=== PATIENT | male | born 1930 | race American Indian/Alaskan Native ===

== ENCOUNTER 2020-05-30 10:39 | Emergency (ER) | payer MEDICARE ==
--- NOTE | 2020-05-30 11:17 | Emergency Department Report ---
HPI - General Chief Complaint: Fall Time Seen by Provider: 05/30/20 11:09 - [facility] HPI: Room 26 The patient is an 89-year-old male present with a chief complaint of fall from standing. Patient is a resident at a skilled nursing report was sent for evaluation after falling from standing. There is no loss of consciousness. Patient denies pain of any type or nausea. 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 ED Past Medical Hx - Past Medical History Previous Medical History?: Yes Hx Hypertension: Yes Hx CVA: Yes (Right-sided deficit) Hx Heart Attack/AMI: Yes Additional medical history: eye probs - Surgical History Past Surgical History?: Yes Additional Surgical History: right kidney removed - Family History Family history: no significant - Social History Smoking Status: Never Smoker Substance Use Type: None - Medications Home Medications: Home Medications Medication Instructions Recorded Confirmed Last Taken Type cephALEXin [Keflex] 500 mg PO Q12HR #10 cap 01/29/16 Unknown Rx ED Review of Systems ROS: Stated complaint: FALL Other details as noted in HPI Constitutional: no symptoms reported Eyes: denies: eye pain ENT: denies: throat pain Respiratory: no symptoms reported Cardiovascular: denies: chest pain Endocrine: no symptoms reported Gastrointestinal: denies: abdominal pain Musculoskeletal: denies: back pain, arthralgia Neurological: denies: headache Physical Exam - Physical Exam Vital Signs: Vital Signs 05/30/20 10:59 Temperature 97.8 F Pulse Rate 70 Respiratory 18 Rate Blood Pressure 119/64 Blood Pressure 119/64 [Right] O2 Sat by Pulse 98 Oximetry Physical Exam: GENERAL: The patient is well-developed well-nourished male lying on stretcher not appearing to be in acute distress. [] HEENT: Normocephalic. Atraumatic. Extraocular motions are intact. Patient has moist mucous membranes. NECK: Supple. No axial step-off CHEST/LUNGS: Clear to auscultation. There is no respiratory distress noted. HEART/CARDIOVASCULAR: Regular. There is no tachycardia. There is no gallop rub or murmur. ABDOMEN: Abdomen is soft, nontender. Patient has normal bowel sounds. There is no abdominal distention. SKIN: There is no rash. There is no edema. There is no diaphoresis. NEURO: The patient is awake, alert, and oriented. The patient is cooperative. Cranial nerves II through XII grossly intact with exception of cranial nerve XI on the right. The patient has right-sided weakness from previous CVA. The patient has normal speech MUSCULOSKELETAL: There is no evidence of acute injury. ED Course Vital Signs 05/30/20 10:59 Temperature 97.8 F Pulse Rate 70 Respiratory 18 Rate Blood Pressure 119/64 Blood Pressure 119/64 [Right] O2 Sat by Pulse 98 Oximetry ED Medical Decision Making - Radiology Data Radiology results: report reviewed (CT head, CT cervical spine), image reviewed (CT head, CT cervical spine) CT head (read by radiologist)-no acute intracranial abnormality [facility] [address] [place] [address] Cat Scan Report Signed Patient: MELE ESPINAL MR#: [id number] : 1930 Acct:[id number] Age/Sex: 89 / M ADM Date: 05/30/20 Loc: ED Attending Dr: Ordering Physician: ANGEL ENGEL MD Date of Service: 05/30/20 Procedure(s): CT cervical spine wo con Accession Number(s): [id number] cc: ANGEL ENGEL MD CT CERVICAL SPINE WITHOUT CONTRAST INDICATION / CLINICAL INFORMATION: Trauma. Patient fell sustaining neck injury. TECHNIQUE: Axial CT images were obtained through the cervical spine. Sagittal and coronal reformatted images were produced. All CT scans at this location are performed using CT dose reduction for ALARA by means of automated exposure control. COMPARISON: None available. FINDINGS: ALIGNMENT: Patient's head is tilted towards the left. There is a mild dextroscoliosis at the cervicothoracic junction. No additional abnormalities of alignment are identified. There is no indication of traumatic subluxation. VERT EBRAE: Is no indication of fracture or bone destruction. Incidental note is made of vertebral pneumatocele cysts at the inferior endplate of C5 and superior endplate of C6. DISC SPACES: Loss of disc height is noted throughout. In addition disc vacuum phenomena is identified at the C4-5 and C5-6 levels. DEGENERATIVE CHANGES: Widespread disc desiccation is noted. Anterior and posterior osteophyte formation is observed at multiple levels. Bilateral facet and uncovertebral arthropathy are noted. These degenerative changes contribute to these multifocal neuroforaminal stenosis including severe right-sided C3 nerve root foraminal stenosis, severe left-sided C4 nerve root neuroforaminal stenosis, severe right-sided C5 nerve root neuroforaminal stenosis, and moderate bilateral C7 nerve root neuroforaminal stenosis. There is no indication of significant central canal stenosis. CRANIOCERVICAL JUNCTION:No significant abnormality. SPINAL CANAL: No indication of significant central canal stenosis. PARASPINAL SOFT TISSUES: No significant abnormality. LUNG APICES: Biapical bullous changes are noted. The lung apices are largely excluded from this examination. IMPRESSION: 1. No indication of fracture or traumatic subluxation. 2. Multifocal neuroforaminal stenosis secondary to widespread cervical spondylosis. Signer Name: Leland Samayoa MD Signed: 05/30/2020 12:44 PM Workstation Name: [id number] Transcribed By: Dictated By: Leland Samayoa MD Electronically Authenticated By: Leland Samayoa MD Signed Date/Time: 05/30/201243 DD/ 39 TD/TT: - Differential Diagnosis Close head injury, cervical fracture, Critical care attestation.: If time is entered above; I have spent that time in minutes in the direct care of this critically ill patient, excluding procedure time. ED Disposition Clinical Impression: Fall with no injury Disposition: DC/TX-70 ANOTHER TYPE HLTHCARE Is pt being admited?: No Does the pt Need Aspirin: No Condition: Stable Additional Instructions: Return to the emergency department should you develop worsening symptoms, inability to tolerate food or liquids, high fever or any other concerns Referrals: PRIMARY [facility] [Referring] - 3-5 Days Time of Disposition: 13:03
--- NOTE | 2020-05-30 12:49 | Cat Scan Report ---
CT CERVICAL SPINE WITHOUT CONTRAST INDICATION / CLINICAL INFORMATION: Trauma. Patient fell sustaining neck injury. TECHNIQUE: Axial CT images were obtained through the cervical spine. Sagittal and coronal reformatted images wer e produced. All CT scans at this location are performed using CT dose reduction for ALARA by means of automated exposure control. COMPARISON: None available. FINDINGS: ALIGNMENT: Patient's head is tilted towards the left. There is a mild dextroscoliosis at the cervicot horacic junction. No additional abnormalities of alignment are identified. There is no indication of traumatic subluxation. VERTEBRAE: Is no indication of fracture or bone destruction. Incidental note is made of vertebral pne umatocele cysts at the inferior endplate of C5 and superior endplate of C6. DISC SPACES: Loss of disc height is noted throughout. In addition disc vacuum phenomena is identified at the C4-5 and C5-6 levels. DEGENERATIVE CHANGES: Widespread disc desiccation is noted. Anterior and posterior osteophyte formati on is observed at multiple levels. Bilateral facet and uncovertebral arthropathy are noted. These deg enerative changes contribute to these multifocal neuroforaminal stenosis including severe right-sided C3 nerve root foraminal stenosis, severe left-sided C4 nerve root neuroforaminal stenosis, severe ri ght-sided C5 nerve root neuroforaminal stenosis, and moderate bilateral C7 nerve root neuroforaminal stenosis. There is no indication of significant central canal stenosis. CRANIOCERVICAL JUNCTION:No significant abnormality. SPINAL CANAL: No indication of significant central canal stenosis. PARASPINAL SOFT TISSUES: No significant abnormality. LUNG APICES: Biapical bullous changes are noted. The lung apices are largely excluded from this exami nation. IMPRESSION: 1. No indication of fracture or traumatic subluxation. 2. Multifocal neuroforaminal stenosis secondary to widespread cervical spondylosis. Signer Name: Leland Samayoa MD Signed: 05/30/2020 12:44 PM Workstation Name: [id number]
--- NOTE | 2020-05-30 12:53 | Cat Scan Report ---
CT HEAD WITHOUT CONTRAST INDICATION / CLINICAL INFORMATION: Fall from standing. TECHNIQUE: All CT scans at this location are performed using CT dose reduction for ALARA by means of automated e xposure control. COMPARISON: Head CT 01/10/2013 FINDINGS: HEMORRHAGE: No evidence of intracranial hemorrhage or extra-axial fluid collection. EXTRA-AXIAL SPACES: Cortical sulci and sylvian fissures are enlarged reflecting a degree of parenchym al volume loss which is within normal limits for the patient's age of 89 years. Basilar cisterns have an unremarkable appearance. VENTRICULAR SYSTEM: The third and lateral ventricles are enlarged reflecting presence of age related parenchymal volume loss. CEREBRAL PARENCHYMA: Periventricular and deep white matter lucency is observed. This is probably seco ndary to microvascular ischemic change. There is no indication of recent infarction. Multiple remote infarctions have developed since previous study. There is a small deep infarction in the left thalamu s. A right frontal anterior cerebral artery infarction is observed. Focal decreased attenuation is se en in the left frontal operculum. There is no indication of recent infarction. MIDLINE SHIFT OR HERNIATION: There is no mass effect. CEREBELLUM / BRAINSTEM: Brainstem has an unremarkable appearance. Age related cerebellar atrophy is n oted. MIDLINE STRUCTURES:Pituitary gland has an unremarkable appearance. No abnormalities are seen in the p ineal region. INTRACRANIAL VESSELS:Calcified atherosclerotic plaque is present along the course of the cavernous se gments of both internal carotid arteries. ORBITS: Status post bilateral cataract surgery. The orbits have an otherwise unremarkable appearance. SOFT TISSUES of HEAD: No significant abnormality. CALVARIUM: Evaluation of bone windows reveals no abnormalities. PARANASAL SINUSES / MASTOID AIR CELLS: Paranasal sinuses are free from inflammatory mucosal disease. Mastoid air cells are normally pneumatized. IMPRESSION: 1. Multiple remote infarctions have developed since baseline study 01/10/2013. 2. Age-related atrophy and microvascular ischemic change. 3. No acute intracranial abnormalities are identified. Signer Name: Leland Samayoa MD Signed: 05/30/2020 12:48 PM Workstation Name: [id number]
[2020-05-30 14:12] VITALS: BP 145/65
== END 2020-05-30 14:12 | disposition other institution (70) ==
LOC: ED 10:39
DX: I69.30 Unspecified sequelae of cerebral infarction (principal); I10 Essential (primary) hypertension; I25.2 Old myocardial infarction; R51.9 Headache, unspecified; Z98.890 Other specified postprocedural states; Z79.899 Other long term (current) drug therapy
CPT/HCPCS: 70450; 72125